=== PATIENT | female | born 1985 | race American Indian/Alaskan Native ===

== ENCOUNTER 2016-09-11 11:38 | Emergency (ER) | payer BC, MEDICAID ==
[2016-09-11] MEDS ORDERED: DECADRON IM STA (16:23)
[2016-09-11] MEDS ORDERED: TORADOL IM ONE (16:23)
--- NOTE | 2016-09-11 16:23 | Emergency Department Report ---
HPI - General Chief Complaint: Extremity Injury, Lower Time Seen by Provider: 09/11/16 16:20 - HPI HPI: Patient here complaining off Right hip pain radiating down her right leg. She says she was up all night with pain. Patient tearful in triage. Patient reports it feels like pinched nerve. She denies any injury or falling. Similar incident in the past. She says she took Advil 3 hour prior to coming to the emergency room and she did not get any relief. She described pain is 10 out of 10. Denies any numbness or tingling. Denies any pain in her back. ED Past Medical Hx - Past Medical History Previous Medical History?: Yes Hx Congestive Heart Failure: No Hx Diabetes: No Hx Asthma: No Hx COPD: No - Surgical History Past Surgical History?: Yes Additional Surgical History: - Family History Family history: no significant - Social History Smoking Status: Never Smoker Substance Use Type: None - Medications Home Medications: Home Medications Medication Instructions Recorded Confirmed Last Taken Type traMADol [Ultram] 50 mg PO Q6HR PRN #16 tablet 09/11/16 Unknown Rx ED Review of Systems ROS: Stated complaint: PAIN IN RT LEG Other details as noted in HPI Comment: All other systems reviewed and negative Constitutional: denies: chills, fever Respiratory: no symptoms reported Cardiovascular: denies: chest pain, palpitations, edema, syncope Musculoskeletal: arthralgia. denies: back pain, joint swelling, myalgia Skin: denies: rash Neurological: denies: headache, weakness, numbness, paresthesias, confusion, abnormal gait, vertigo Physical Exam - Physical Exam Vital Signs: Vital Signs 09/11/16 11:44 Temperature 98.4 F Pulse Rate 72 Respiratory 16 Rate Blood Pressure 132/83 O2 Sat by Pulse 97 Oximetry General: This is 30-year-old female well-nourished well-developed in no acute distress. Physical Exam: Head: Normocephalic atraumatic Neck: Supple, no C-spine tenderness, no tracheal deviation. Nontender to palpate. no adenopathy Eyes: Bilateral pupils equal and reactive to light, bilateral EOM intact. Bilateral sclera and conjunctiva without injection. Normal accommodation Lungs:Clear to auscultate bilaterally no rhonchi wheezes or rales. Normal work of breathing extremity; No CCE. +2 pulses. No neurovascular compromise. Good CSMT. no deformity. MSK: Full ROM to all extremities. No joint deformities. +5/5 mvmt to EXT Cardiovascular: S1-S2, regular rate rhythm. No murmurs. Skin: clean Dry and intact no rash no lesions Psych: Normal mood and behavior Back: Negative SLR bilaterally, no vertebral or paraspinal tenderness. Patient able to ambulate without any difficulties. No saddle anesthesia. Neurologic: GCS at 15, alert and oriented 3, speech is normal and fluid. Negative pronator drift. Normal reflexes. Facial drooping. Gait is normal and bilateral hand french lecturer strong and equal. No motor or sensory deficit. ED Course Vital Signs 09/11/16 11:44 Temperature 98.4 F Pulse Rate 72 Respiratory 16 Rate Blood Pressure 132/83 O2 Sat by Pulse 97 Oximetry - Reevaluation(s) Reevaluation #1: 09/11/16 18:00 PT given Toradol 30 mg and Decadron 8 mg IM and emergency room for pain. Pain is down to 3 out of 10. ED Medical Decision Making - Radiology Data Radiology results: image reviewed interpreted by me: X-ray interpreted by Dr. Nur and revealed scoliosis of the spine otherwise no subluxation or fracture. - Medical Decision Making ED course: I discussed with patient her x-ray results and discussed with her that she has scoliosis which is chronic and she will need to follow-up with Orthopedic doctor for further evaluation and treatment. He was given Toradol 30 mg and Decadron 8 mg in emergency room IM which relieved her pain down to 3 out of 10. Patient discharged home with prescription for Ultram and to follow- up with orthopedic doctor. Critical care attestation.: If time is entered above; I have spent that time in minutes in the direct care of this critically ill patient, excluding procedure time. ED Disposition Clinical Impression: Musculoskeletal pain of left lower extremity Scoliosis deformity of spine Qualifiers: Scoliosis type: unspecified scoliosis Spinal region: unspecified Qualified Code (s): M41.9 - Scoliosis, unspecified Disposition: DISCHARGED TO HOME OR SELFCARE Is pt being admited?: No Does the pt Need Aspirin: No Condition: Stable Instructions: Arthralgia (ED), Musculoskeletal Pain (ED) Additional Instructions: You have scoliosis of the spine. This is an abnormal curvature of the spine which can cause pain. Prescriptions: traMADol [Ultram] 50 mg PO Q6HR PRN #16 tablet PRN Reason: Pain Referrals: PRIMARY CARE, [Primary Care Provider] - 09/16/16 CALISTA CHAVEZ MD [Staff Physician] - 09/16/16 Forms: Work/School Release Form(ED)
[2016-09-11 17:10] VITALS: BP 123/66
--- NOTE | 2016-09-11 18:23 | XRay Report ---
FINAL REPORT EXAM: XR SPINE LUMBOSACRAL 2-3V HISTORY: Radiculopathy TECHNIQUE: 3 views of the lumbar spine PRIORS: None. FINDINGS: The lumbar vertebral bodies are normal in height. There is mild right convex scoliosis centered at L1-2. There is endplate sclerosis at T12 and L1 and superior L2 endplate. There is mild anterior wedging L1.. The soft tissues are unremarkable. IMPRESSION: 1. Mild right scoliosis centered at L1-2 2. Endplate changes at the thoracolumbar spine with mild anterior wedging at L1. These findings are most likely due to old Scheuermann's disease. 3. Considering the history of radiculopathy, evaluation with MRI is recommended that will give more precise anatomic detail of degenerative changes and their relationship to the spinal canal and spinal nerves.
== END 2016-09-11 18:13 | disposition home or self-care (01) ==
LOC: ED 11:38
DX: M41.9 Scoliosis, unspecified (principal); M79.662 Pain in left lower leg
CPT/HCPCS: 72100; 96372; 99283; J1100; J1885